=== PATIENT | male | born 1990 | race Two or more races ===

== ENCOUNTER 2016-10-18 04:19 | Emergency (ER) | payer SELFPAY ==
[~2016-10-18] VITALS: Ht 129.5 cm; Wt 59.0 kg
[2016-10-18] MEDS ORDERED: CLIN300C86 PO (05:14)
--- NOTE | 2016-10-18 05:14 | PHYS DOC ---
Past Medical History Past Medical History: No Pertinent History Past Surgical History: No Surgical History Alcohol Use: None Drug Use: Marijuana Adult General Chief Complaint Chief Complaint: GROIN PAIN HPI HPI 26-year-old male presenting to the emergency department today with pain of the scrotum with mild erythema. He reports that a few days ago he noticed a small pimple on his scrotum. He reports the pimple got worse and started developing redness and spread mildly a proximally 1 cm in diameter over the past 2 days. He denies any black necrotic tissue developing. He denies pain in the testicle itself. (I clarified nursing note says testicular pain, but he clarifies it is scrotal pain. ) He denies swelling of the testicle. (again clarified with pt). Review of systems is negative for testicular pain. Testicular swelling. He denies nausea vomiting. All other review of systems is negative unless otherwise noted in history of present illness. Review of Systems Review of Systems SEE ABOVE. Allergies Allergies Allergies Coded Allergies Type Severity Reaction Last Updated Verified No Known Drug Allergies 10/18/16 No Physical Exam Physical Exam Constitutional: Well developed, well nourished, no acute distress, non-toxic appearance. HENT: Normocephalic, atraumatic, bilateral external ears normal, oropharynx moist, no oral exudates, nose normal. [] Eyes: PERRLA, EOMI, conjunctiva normal, no discharge. Neck: Normal range of motion, no tenderness, supple, no stridor. Cardiovascular:Heart rate regular rhythm, no murmur [] Lungs & Thorax: Bilateral breath sounds clear to auscultation Abdomen: Bowel sounds normal, soft, no tenderness, no masses, no pulsatile masses. [] exam. The patient's scrotal sac shows mild erythema of the scrotal skin with cellulitis approximately 1 cm in diameter. No evidence of necrosis. No crepitus to palpation. The patient's testicles are normal in size without swelling. their orientation is within normal limits. vertical lie. Cremaster reflex intact. No evidence of Emmy's gangrene. Entire scrotum has been evaluated including the entire perineal area. Skin: Warm, dry, no erythema, no rash. Back: No tenderness, no CVA tenderness. [] Extremities: No tenderness, no cyanosis, no clubbing, ROM intact, no edema. Neurologic: Alert and oriented X 3, normal motor function, normal sensory function, no focal deficits noted. [] Psychologic: Affect normal, judgement normal, mood normal. [] Current Patient Data Vital Signs Vital Signs Date Time Temp Pulse Resp B/P Pulse Ox O2 Delivery O2 Flow Rate FiO2 10/18/16 05:18 91 16 111/67 96 Room Air 10/18/16 04:47 98.3 98.3 EKG EKG [] Radiology/Procedures Radiology/Procedures [] Course & Med Decision Making Course & Med Decision Making Pertinent Labs and Imaging studies reviewed. (See chart for details) [] 26-year-old male presenting with scrotal cellulitis. No testicular swelling present. Cremasteric reflex intact. Clinical presentation not consistent with testicular torsion. No evidence of Emmy's gangrene present. Oral antibiotics ordered to follow up with PCP over the next 2-3 days. Return precautions given [id number]. Patient comfortable with plan. Dragon Disclaimer Dragon Disclaimer This electronic medical record was generated, in whole or in part, using a voice recognition dictation system. Departure Departure Impression: Primary Impression: Cellulitis, scrotum Disposition: HOME, SELF-CARE Condition: STABLE Referrals: UNKNOWN PCP NAME (PCP) WILL ALVAREZ MD Patient Instructions: Cellulitis, [id number] Additional Instructions: Thank you for allowing us to participate in your care today. Followup with your primary care physician in 3 days if your symptoms do not improve. If you do not have a primary care provider you can ask for a list of our primary care providers. Return to the emergency department you have any new or concerning findings. This should be evaluated by the primary care physician and any necessary consulting services for continued management within a few days after discharge. Return to emergency room if you have any new or concerning symptoms including but not limited to fever, chills, nausea, vomiting, intractable pain, any new rashes, chest pain, shortness of air, uncontrolled bleeding, difficulty breathing, and/or vision loss. Scripts Clindamycin Hcl 300 Mg Capsule1 Cap PO TID #21 CAP Prov:MAKSIM HURLEY MD 10/18/16 MAKSIM HURLEY MD Oct 18, 2016 05:14
[2016-10-18 05:18] VITALS: BP 111/67
== END 2016-10-18 05:19 | disposition home or self-care (01) ==
LOC: ER 04:19
DX: N49.2 Inflammatory disorders of scrotum (principal); F12.10 Cannabis abuse, uncomplicated
CPT/HCPCS: 99283